=== PATIENT | female | born 1965 | race African-American/Black ===

== ENCOUNTER 2021-09-13 10:41 | Emergency (ER) | payer OTHER ==
[~2021-09-13] VITALS: Ht 152.4 cm; Wt 54.4 kg
[2021-09-13] MEDS ORDERED: TYLENOL PM (10:58)
[2021-09-13] MEDS ORDERED: VICODIN (10:58)
[2021-09-13] MEDS ORDERED: OXYCODONE (10:58)
[2021-09-13] MEDS ORDERED: IBUP-1957 PO (11:35)
[2021-09-13 12:14] VITALS: BP 121/61
--- NOTE | 2021-09-13 12:14 | NUR ---
Patient discharged to home in stable condition. Written and verbal after care instructions given. Patient verbalizes understanding of instructions. Stressed follow up or return to ER for worsening s/s.
[2021-09-13] MEDS ORDERED: HYDROCODONE/APAP 10-325 MG TABLET PO ONE (12:15)
[2021-09-13] MEDS ORDERED: HYDROCODONE/APAP 10-325 MG TABLET ONE (12:18)
== END 2021-09-13 12:23 | disposition home or self-care (01) ==
LOC: ER 10:41
DX: S06.0X1A Concussion with loss of consciousness of 30 minutes or less, initial encounter (principal); S00.211A Abrasion of right eyelid and periocular area, initial encounter; S16.1XXA Strain of muscle, fascia and tendon at neck level, initial encounter; S00.83XA Contusion of other part of head, initial encounter; W01.0XXA Fall on same level from slipping, tripping and stumbling without subsequent striking against object, initial encounter; Y93.89 Activity, other specified; Y92.59 Other trade areas as the place of occurrence of the external cause; Z86.011 Personal history of benign neoplasm of the brain; G89.29 Other chronic pain
CPT/HCPCS: 70450; 70486; 72125; A4663

== ENCOUNTER 2024-01-20 19:54 | Emergency (ER) | payer OTHER ==
[~2024-01-20] VITALS: Ht 152.4 cm; Wt 68.0 kg
[~2024-01-20 19:54] MED LIST: IBUP-1957 PO; OXYCODONE; TYLENOL PM; VICODIN
[2024-01-20] MEDS: KETOROLAC TROMETHAMINE 30 MG INJ IM ONE (20:15)
[2024-01-20] MEDS ORDERED: KETOROLAC TROMETHAMINE 30 MG INJ ONE (20:16)
[2024-01-20] MEDS ORDERED: IBUPROFEN 400 MG TABLET ONE (22:22)
[2024-01-20 22:25] VITALS: BP 98/37; O2SAT 98
[2024-01-20] MEDS ORDERED: NAPR-1009 PO (22:25)
[2024-01-20] MEDS: IBUPROFEN 400 MG TABLET PO ONE (22:34)
== END 2024-01-20 22:25 | disposition home or self-care (01) ==
LOC: ER 19:57
DX: Z98.890 Other specified postprocedural states (principal); F17.200 Nicotine dependence, unspecified, uncomplicated; Z79.899 Other long term (current) drug therapy; Z79.1 Long term (current) use of non-steroidal anti-inflammatories (NSAID); S16.1XXA Strain of muscle, fascia and tendon at neck level, initial encounter; W18.39XA Other fall on same level, initial encounter; Y93.89 Activity, other specified; Y92.89 Other specified places as the place of occurrence of the external cause; Y99.8 Other external cause status
CPT/HCPCS: 99285; 70450; 73060; 73090; 73130; 72125; 72192; 96372; J1885; A4606; A4663